=== PATIENT | male | born 1970 | race Caucasian/White ===

== ENCOUNTER 2018-03-21 15:05 | Emergency (ER) | payer SELFPAY ==
[~2018-03-21] VITALS: Ht 177.8 cm; Wt 105.2 kg
[2018-03-21 15:14] VITALS: BP 140/95; Ht 177.8 cm; Wt 105.2 kg
== END 2018-03-21 15:52 | disposition home or self-care (01) ==
LOC: ED 15:05
DX: L72.8 Other follicular cysts of the skin and subcutaneous tissue (principal); F41.9 Anxiety disorder, unspecified